=== PATIENT | female | born 1970 | race Caucasian/White ===

== ENCOUNTER 2017-09-28 12:12 | Emergency (ER) | END 2017-09-28 13:34 | disposition home or self-care (01) | DX: L02.31 Cutaneous abscess of buttock (principal) | CPT/HCPCS: 10060; Z7502; Z7610 ==

== ENCOUNTER 2017-09-30 21:01 | Emergency (ER) | payer OTHER ==
[~2017-09-30] VITALS: Ht 162.6 cm; Wt 80.0 kg
[~2017-09-30 21:01] MED LIST: CEPH-443 PO; IBUP-1542 PO; MECL25TA2 PO; ONDA4TAB35 PO; SULF1TAB31 PO; TRAM50TA2 PO
[2017-09-30 21:09] VITALS: Ht 162.6 cm; Wt 80.0 kg
--- NOTE | 2017-09-30 22:23 | ERD ---
ER Documentation Chief Complaint Chief Complaint RIGHT BUTTOCK ABCESS WOUND CHECK HPI This is a 47-year-old female who presents emergency department today for wound check of an abscess that she had drained on her right buttock a couple of days ago. States she is taking her antibiotics as prescribed. Denies any fevers or chills. States that the packing and dressing fell off when she was cleaning herself. ROS All systems reviewed and are negative except as per history of present illness. Medications Home Meds Active Scripts Ibuprofen* (Motrin*) 600 Mg Tab, 600 MG PO Q6, #15 TAB Prov:JANIS DURÁN MD 09/28/17 Cephalexin* (Keflex*) 500 Mg Capsule, 500 MG PO QID for 7 Days, CAP Prov:JANIS DURÁN MD 09/28/17 Sulfamethoxazole/Trimethoprim* (Bactrim Ds* Tablet) 1 Each Tablet, 1 TAB PO BID for 7 Days, #14 TAB Prov:JANIS DURÁN MD 09/28/17 Ondansetron Hcl* (Zofran* ODT) 4 mg -ODT Tab.disper, 4 MG PO Q6 Y for NAUSEA AND /OR VOMITING, #10 TAB Prov:[facility] DO 05/04/16 Meclizine Hcl* (Antivert*) 25 Mg Tablet, 25 MG PO Q6H Y for DIZZINESS, #20 TAB Prov[facility] 05/04/16 Ibuprofen* (Motrin*) 600 Mg Tab, 600 MG PO Q6H Y for PAIN AND OR ELEVATED TEMP, #30 TAB Prov:CRISTIAN DAVISON NP 03/23/16 Tramadol HCl (Tramadol HCl) 50 Mg Tablet, 50 MG PO Q4 Y for PAIN, #20 TAB Prov:CRISTIAN DAVISON NP 03/23/16 Ondansetron Hcl* (Zofran* ODT) 4 mg -ODT Tab.disper, 4 MG PO Q6 Y for NAUSEA AND /OR VOMITING, #10 TAB Prov:KAYA LINCOLN 10/26/15 Reported Medications [none] Unknown Strength No Conflict Check 03/22/16 Allergies Allergies: Coded Allergies: No Known Allergy (Unverified , 10/26/15) PMhx/Soc Medical and Surgical Hx: pt denies Medical Hx History of Surgery: Yes (cholecystectomy, C Section) Anesthesia Reaction: No Hx Neurological Disorder: No Hx Respiratory Disorders: No Hx Cardiac Disorders: No Hx Psychiatric Problems: No Hx Miscellaneous Medical Probl: Yes (LUPUS ) Hx Alcohol Use: Yes (SOCIAL ) Hx Substance Use: No Hx Tobacco Use: No Physical Exam Vitals Vital Signs Date Time Temp Pulse Resp B/P Pulse Ox O2 Delivery O2 Flow Rate FiO2 09/30/17 21:09 98.6 84 18 136/79 98 Physical Exam Const: NAD Head: Atraumatic Eyes: Normal Conjunctiva ENT: Normal External Ears, Nose and Mouth. Neck: Full range of motion..~ No meningismus. Resp: Clear to auscultation bilaterally Cardio: Regular rate and rhythm, no murmurs Abd: Soft, non tender, non distended. Normal bowel sounds Skin: Evidence of drained abscess right buttock. Mild drainage. No erythema or warmth. Back: No midline or flank tenderness Ext: No cyanosis, or edema Neur: Awake and alert Psych: Normal Mood and Affect Procedures/MDM This a 47-year-old female who presents the emergency department today for a wound check of an abscess that she had drained 2 days ago. Upon review of patient's medical records patient had this abscess drained on her right buttock. There was packing at the time however patient did indicate that the packing had fallen off. On physical exam patient did have some small mucous plugs that I did remove today. She is afebrile and otherwise well-appearing. Low suspicion for sepsis, cellulitis, deep space tracking infection. Patient was instructed to continue taking her antibiotics as prescribed. At this time the patient is stable for discharge and outpatient management. Patient should follow up with their PCP in the next 1-2 days. They may return to the emergency department sooner for any persistent or worsening of symptoms. Patient understood and agreed with the plan. Departure Diagnosis: Primary Impression: Encounter for wound re-check Condition: Fair Patient Instructions: Wound Care Referrals: COMMUNITY CLINICS YOU HAVE RECEIVED A MEDICAL SCREENING EXAM AND THE RESULTS INDICATE THAT YOU DO NOT HAVE A CONDITION THAT REQUIRES URGENT TREATMENT IN THE EMERGENCY DEPARTMENT. FURTHER EVALUATION AND TREATMENT OF YOUR CONDITION CAN WAIT UNTIL YOU ARE SEEN IN YOUR DOCTORS OFFICE WITHIN THE NEXT 1-2 DAYS. IT IS YOUR RESPONSIBILITY TO MAKE AN APPOINTMENT FOR FOLOW-UP CARE. IF YOU HAVE A PRIMARY DOCTOR --you should call your primary doctor and schedule an appointment IF YOU DO NOT HAVE A PRIMARY DOCTOR YOU CAN CALL OUR PHYSICIAN REFERRAL HOTLINE AT IF YOU CAN NOT AFFORD TO SEE A PHYSICIAN YOU CAN CHOSE FROM THE FOLLOWING [facility] [address] [facility] [address] [facility] [facility] [address] [facility] [address] [facility] [address] [facility]. [facility]. [address] Additional Instructions: Call your primary care doctor TOMORROW for an appointment during the next 1-2 days.See the doctor sooner or return here if your condition worsens before your appointment time. Continue taking her antibiotics as prescribed. Keep wound clean and dry. ALFREDO FAROOQ PA-C Sep 30, 2017 22:23
== END 2017-09-30 22:39 | disposition home or self-care (01) ==
LOC: FTE 21:01
DX: Z48.01 Encounter for change or removal of surgical wound dressing (principal)
CPT/HCPCS: 99281

== ENCOUNTER 2018-05-14 12:51 | Emergency (ER) | END 2018-05-14 14:06 | disposition home or self-care (01) ==

== ENCOUNTER 2018-05-16 11:32 | Emergency (ER) | END 2018-05-16 13:15 | disposition home or self-care (01) ==

== ENCOUNTER 2019-02-19 14:44 | Emergency (ER) | payer OTHER ==
[~2019-02-19] VITALS: Ht 162.6 cm; Wt 88.2 kg
[~2019-02-19 14:44] MED LIST changes: +ACET500C5 PO; +FAMO-96 PO
[2019-02-19 14:58] VITALS: RESP 16; Ht 162.6 cm; Wt 88.2 kg
[2019-02-19] MEDS ORDERED: BACI3.5O19 BOTH EYES (16:52)
--- NOTE | 2019-02-19 16:59 | ERD ---
ER Documentation Chief Complaint Chief Complaint RT EYE RED, ITCHING, SWOLLEN X 2 DAYS HPI 48-year-old female with no past medical or surgical history who presents with 2- day complaint of right eyelid redness and itchiness. States having burning like itching to the right eyelid primarily but now starting to have symptoms in left eyelid. She denies pain to the eye, blurry vision, discharge from eyes. No fevers or recent illness. Tried some Neosporin to right eyelid yesterday. States had a nephew who had an eye infection approximately 4 weeks ago. Reporting relatively good health recently. Has made an appointment to see PMD next month. ROS All systems reviewed and are negative except as per history of present illness. Medications Home Meds Active Scripts Bacitracin-Polymyxin* (Bacitracin-Polymyxin* Eye Oint) 3.5 Gm Oint..gm., 1 APPLIC BOTH EYES TID for 7 Days, TUB Prov:THAI MARTINEZ PA-C 02/19/19 Famotidine* (Pepcid*) 20 Mg Tablet, 20 MG PO BID for 4 Days, #30 TAB Prov:MEENA ANDINO PA-C 05/14/18 Acetaminophen* (Tylophen*) 500 Mg Capsule, 1 CAP PO Q6H PRN for PAIN AND OR ELEVATED TEMP, #20 CAP Prov:MEENA ANDINO PA-C 05/14/18 Ibuprofen* (Motrin*) 600 Mg Tab, 600 MG PO Q6, #30 TAB Prov:MEENA ANDINO PA-C 05/14/18 Cephalexin* (Keflex*) 500 Mg Capsule, 500 MG PO QID for 7 Days, CAP Prov:MEENA ANDINO PA-C 05/14/18 Sulfamethoxazole/Trimethoprim* (Bactrim Ds* Tablet) 1 Each Tablet, 1 TAB PO BID, #14 TAB Prov:MEENA ANDINO PA-C 05/14/18 Ibuprofen* (Motrin*) 600 Mg Tab, 600 MG PO Q6, #15 TAB Prov:JANIS DURÁN MD 09/28/17 Cephalexin* (Keflex*) 500 Mg Capsule, 500 MG PO QID for 7 Days, CAP Prov:JANIS DURÁN MD 09/28/17 Sulfamethoxazole/Trimethoprim* (Bactrim Ds* Tablet) 1 Each Tablet, 1 TAB PO BID for 7 Days, #14 TAB Prov:JANIS DURÁN MD 09/28/17 Ondansetron Hcl* (Zofran* ODT) 4 mg -ODT Tab.disper, 4 MG PO Q6 PRN for NAUSEA AND/OR VOMITING, #10 TAB Prov[facility] 05/04/16 Meclizine Hcl* (Antivert*) 25 Mg Tablet, 25 MG PO Q6H PRN for DIZZINESS, #20 TAB Prov:[facility] 05/04/16 Ibuprofen* (Motrin*) 600 Mg Tab, 600 MG PO Q6H PRN for PAIN AND OR ELEVATED TEMP, #30 TAB Prov:CRISTIAN DAVISON NP 03/23/16 Tramadol HCl (Tramadol HCl) 50 Mg Tablet, 50 MG PO Q4 PRN for PAIN, #20 TAB Prov:CRISTIAN DAVISON NP 03/23/16 Ondansetron Hcl* (Zofran* ODT) 4 mg -ODT Tab.disper, 4 MG PO Q6 PRN for NAUSEA AND/OR VOMITING, #10 TAB Prov:KAYA LINCOLN 10/26/15 Reported Medications [none] Unknown Strength No Conflict Check 03/22/16 Allergies Allergies: Coded Allergies: No Known Allergy (Unverified , 05/14/18) PMhx/Soc History of Surgery: Yes (cholecystectomy, C Section) Anesthesia Reaction: No Hx Neurological Disorder: No Hx Respiratory Disorders: No Hx Cardiac Disorders: No Hx Psychiatric Problems: No Hx Miscellaneous Medical Probl: Yes (LUPUS ) Hx Alcohol Use: Yes (SOCIAL ) Hx Substance Use: No Hx Tobacco Use: No Physical Exam Vitals Vital Signs Date Temp Pulse Resp B/P (MAP) Pulse Ox O2 O2 Flow FiO2 Time Delivery Rate 02/19/19 98.2 91 16 179/88 97 14:58 (118) Physical Exam I have reviewed the triage vital signs. Const: Well nourished, well developed, appears stated age Eyes: PERRL, no conjunctival injection Visual Ware: Intact in all four quadrants bilaterally Erythema to R eyelid, minimal swelling, L eye with mild erythema at inner corner Lac ducts/glands: No swelling Lids w/ evertion: Normal, no foreign body Retina exam: No obvious abnormality HENT: NCAT, Neck supple without meningismus CV: RRR, Warm, well-perfused extremities RESP: CTAB, Unlabored respiratory effort GI: soft, non-tender, non-distended, no masses MSK: No gross deformities appreciated Skin: Warm, dry. No rashes Neuro: grossly non focal Psych: Appropriate mood and affect. Procedures/MDM 48-year-old female presents with complaint of right right eyelid redness and itching. Presentation consistent with acute blepharitis. I have very low suspicion for ocular emergency has no ocular involvement or vision complaints. She is nontoxic-appearing without fevers here in triage. Doubt corneal abrasion. Her ocular exam is unremarkable. We will discharge her with bacitracin ointment and have her follow-up with PMD as planned. DISPOSITION PLAN: We discussed follow up with the patient's primary care doctor within 24 to 48 hours. Patient counseled regarding my diagnostic impression and care plan. Prior to discharge all questions answered. Pt agrees with treatment plan and understands strict return precautions. Precautionary instructions provided including instructions to return to the ER if not improving or for any worsening or changing symptoms or concerns. Departure Diagnosis: Primary Impression: Blepharitis of both eyes with rosacea Additional Impression: Pain in eye Condition: Stable Referrals: [facility] YOU HAVE RECEIVED A MEDICAL SCREENING EXAM AND THE RESULTS INDICATE THAT YOU DO NOT HAVE A CONDITION THAT REQUIRES URGENT TREATMENT IN THE EMERGENCY DEPARTMENT. FURTHER EVALUATION AND TREATMENT OF YOUR CONDITION CAN WAIT UNTIL YOU ARE SEEN IN YOUR DOCTORS OFFICE WITHIN THE NEXT 1-2 DAYS. IT IS YOUR RESPONSIBILITY TO MAKE AN APPOINTMENT FOR FOLOW-UP CARE. IF YOU HAVE A PRIMARY DOCTOR --you should call your primary doctor and schedule an appointment IF YOU DO NOT HAVE A PRIMARY DOCTOR YOU CAN CALL OUR PHYSICIAN REFERRAL HOTLINE AT IF YOU CAN NOT AFFORD TO SEE A PHYSICIAN YOU CAN CHOSE FROM THE FOLLOWING [facility] CLINICS [facility] [address] [facility] [address] [facility] [address] [facility] [address] [place] [facility] [address] [facility]. [facility] [address] Additional Instructions: Call your primary care doctor TOMORROW for an appointment during the next 2-3 days.See the doctor sooner or return here if your condition worsens before your appointment time. THAI MARTINEZ PA-C Feb 19, 2019 16:59
[2019-02-19 17:11] VITALS: BP 156/88; PULSE 78
== END 2019-02-19 17:12 | disposition home or self-care (01) ==
LOC: FTE 14:44
DX: H01.006 Unspecified blepharitis left eye, unspecified eyelid (principal); H01.003 Unspecified blepharitis right eye, unspecified eyelid; L71.9 Rosacea, unspecified
CPT/HCPCS: 99283

== ENCOUNTER 2019-06-09 10:20 | Emergency (ER) | payer OTHER ==
[~2019-06-09] VITALS: Ht 167.6 cm; Wt 89.2 kg
[~2019-06-09 10:20] MED LIST changes: +BACI3.5O19 BOTH EYES
[2019-06-09 10:21] VITALS: BP 169/88; PULSE 72; RESP 18; Ht 167.6 cm; Wt 89.2 kg
[2019-06-09] MEDS ORDERED: TRAM50TA2 PO (10:45)
[2019-06-09] MEDS ORDERED: IBUP-1542 PO (10:45)
--- NOTE | 2019-06-09 10:53 | ERD ---
ER Documentation Chief Complaint Chief Complaint left sided dental pain x 3 days HPI 48-year-old female with no reported past medical history who presents with 3-day complaint of left-sided tooth/dental pain. States she had a incomplete root canal about 2 weeks ago but over the past 3 days has been having worsening pain and swelling to the area. . She is able to see a dentist yesterday who would not complete root canal but placed patient on antibiotic, patient currently on amoxicillin and given Tylenol with codeine for pain control. Called her dentist who is currently on vacation and does not return until the of this month. She otherwise denies fevers, chills, discharge from area of the mouth, continued bleeding, pain with swallowing, shortness of breath or dyspneaShe otherwise is without complaint. ROS All systems reviewed and are negative except as per history of present illness. Medications Home Meds Active Scripts Ibuprofen* (Motrin*) 600 Mg Tab, 600 MG PO Q6, #30 TAB Prov:THAI MARTINEZ PA-C 06/09/19 Tramadol HCl (Tramadol HCl) 50 Mg Tablet, 50 MG PO Q4 PRN for PAIN, #20 TAB Prov:THAI MARTINEZ PA-C 06/09/19 Bacitracin-Polymyxin* (Bacitracin-Polymyxin* Eye Oint) 3.5 Gm Oint..gm., 1 APPLIC BOTH EYES TID for 7 Days, TUB Prov:THAI MARTINEZ PA-C 02/19/19 Famotidine* (Pepcid*) 20 Mg Tablet, 20 MG PO BID for 4 Days, #30 TAB Prov:MEENA ANDINO PA-C 05/14/18 Acetaminophen* (Tylophen*) 500 Mg Capsule, 1 CAP PO Q6H PRN for PAIN AND OR ELEVATED TEMP, #20 CAP Prov:MEENA ANDINO PA-C 05/14/18 Ibuprofen* (Motrin*) 600 Mg Tab, 600 MG PO Q6, #30 TAB Prov:MEENA ANDINO PA-C 05/14/18 Cephalexin* (Keflex*) 500 Mg Capsule, 500 MG PO QID for 7 Days, CAP Prov:MEENA ANDINO PA-C 05/14/18 Sulfamethoxazole/Trimethoprim* (Bactrim Ds* Tablet) 1 Each Tablet, 1 TAB PO BID, #14 TAB Prov:MEENA ANDINO PA-C 05/14/18 Ibuprofen* (Motrin*) 600 Mg Tab, 600 MG PO Q6, #15 TAB Prov:JANIS DURÁN MD 09/28/17 Cephalexin* (Keflex*) 500 Mg Capsule, 500 MG PO QID for 7 Days, CAP Prov:JANIS DURÁN MD 09/28/17 Sulfamethoxazole/Trimethoprim* (Bactrim Ds* Tablet) 1 Each Tablet, 1 TAB PO BID for 7 Days, #14 TAB Prov:JANIS DURÁN MD 09/28/17 Ondansetron Hcl* (Zofran* ODT) 4 mg -ODT Tab.disper, 4 MG PO Q6 PRN for NAUSEA AND/OR VOMITING, #10 TAB [facility] 05/04/16 Meclizine Hcl* (Antivert*) 25 Mg Tablet, 25 MG PO Q6H PRN for DIZZINESS, #20 TAB Prov[facility] 05/04/16 Ibuprofen* (Motrin*) 600 Mg Tab, 600 MG PO Q6H PRN for PAIN AND OR ELEVATED TEMP, #30 TAB Prov:CRISTIAN DAVISON NP 03/23/16 Tramadol HCl (Tramadol HCl) 50 Mg Tablet, 50 MG PO Q4 PRN for PAIN, #20 TAB Prov:CRISTIAN DAVISON NP 03/23/16 Ondansetron Hcl* (Zofran* ODT) 4 mg -ODT Tab.disper, 4 MG PO Q6 PRN for NAUSEA AND/OR VOMITING, #10 TAB Prov:KAYA LINCOLN 10/26/15 Reported Medications [none] Unknown Strength No Conflict Check 03/22/16 Allergies Allergies: Coded Allergies: acetaminophen (Verified Allergy, Unknown, low BP, 06/09/19) hydrocodone (Verified Allergy, Unknown, low BP, 06/09/19) PMhx/Soc History of Surgery: Yes (cholecystectomy, C Section) Anesthesia Reaction: No Hx Neurological Disorder: No Hx Respiratory Disorders: No Hx Cardiac Disorders: No Hx Psychiatric Problems: No Hx Miscellaneous Medical Probl: Yes (LUPUS ) Hx Alcohol Use: Yes (SOCIAL ) Hx Substance Use: No Hx Tobacco Use: No Smoking Status: Never smoker FmHx Family History: No diabetes, No coronary disease, No other Physical Exam Vitals Vital Signs Date Temp Pulse Resp B/P (MAP) Pulse Ox O2 O2 Flow FiO2 Time Delivery Rate 06/09/19 98.0 72 18 169/88 96 10:21 (115) Physical Exam Const: No acute distress Head: Atraumatic Eyes: Normal Conjunctiva ENT: Left side with what appears to be impacted molar tooth, no redness or significant swelling, no evidence of drainable abscess and oral cavity,No uvular deviation or edema, no soft palate swelling, no sublingual brawny edema, no periapical swelling or pus expression, no tooth fracture, no gingival swelling, no active oral bleeding. Neck: Full range of motion. No meningismus. Resp: Clear to auscultation bilaterally Cardio: Regular rate and rhythm, no murmurs Abd: Soft, non tender, non distended. Normal bowel sounds Skin: No petechiae or rashes Back: No midline or flank tenderness Ext: No cyanosis, or edema Neur: Awake and alert Psych: Normal Mood and Affect Procedures/MDM 48-year-old female presents with left-sided dental pain that is post root canal. I have low suspicion for dental infection warranting further emergent care work-up at this time. Patient on amoxicillin and her main complaint is pain. Will give additional pain medications and advised patient to follow-up with dentist as soon as possible. Patient not immunosuppressed. No e/o tooth fracture, avulsion, or bleeding socket. No e/o RPA, [employer], Ludwigs angina, periapical abscess. No e/o gingival hyperplasia or concern for drug reaction. Rx Ibuprofen and tramadol. Patient already on amoxicillin antibiotic urged to continue Disposition: Discharge home. Discussed return precautions for odontogenic infections and other dental pain emergencies. Will provide dental clinic list. Departure Diagnosis: Primary Impression: Toothache Condition: Stable Patient Instructions: Dental Pain Referrals: COMMUNITY CLINICS YOU HAVE RECEIVED A MEDICAL SCREENING EXAM AND THE RESULTS INDICATE THAT YOU DO NOT HAVE A CONDITION THAT REQUIRES URGENT TREATMENT IN THE EMERGENCY DEPARTMENT. FURTHER EVALUATION AND TREATMENT OF YOUR CONDITION CAN WAIT UNTIL YOU ARE SEEN IN YOUR DOCTORS OFFICE WITHIN THE NEXT 1-2 DAYS. IT IS YOUR RESPONSIBILITY TO MAKE AN APPOINTMENT FOR FOLOW-UP CARE. IF YOU HAVE A PRIMARY DOCTOR --you should call your primary doctor and schedule an appointment IF YOU DO NOT HAVE A PRIMARY DOCTOR YOU CAN CALL OUR PHYSICIAN REFERRAL HOTLINE AT IF YOU CAN NOT AFFORD TO SEE A PHYSICIAN YOU CAN CHOSE FROM THE FOLLOWING [facility] CL[facility]ICS [facility] [address] [facility] [address] [facility] [address] [facility] [address] [facility] [address] [facility]. [facility] [address] [facility] [address]. [facility] ([facility] walk in clinic) Additional Instructions: Call your primary care doctor TOMORROW for an appointment during the next 2-3 days.See the doctor sooner or return here if your condition worsens before your appointment time. THAI MARTINEZ PA-C Jun 09, 2019 10:53
== END 2019-06-09 11:17 | disposition home or self-care (01) ==
LOC: FTE 10:20
DX: K08.89 Other specified disorders of teeth and supporting structures (principal)
CPT/HCPCS: 99283